=== PATIENT | female | born 2000 | race Caucasian/White ===

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

== ENCOUNTER 2022-04-15 07:51 | Day surgery (SDC) | payer BC, SELFPAY ==
[2022-04-15 08:19] VITALS: BP 112/63; PULSE 99; RESP 18; TEMP 36.9; O2SAT 100; BMI 32.2
[2022-04-15] MEDS: Lactated Ringers 1,000 ML 15 ML IV (08:19)
[2022-04-15 08:21] LABS: Internal QC Validated? YES +Cl - CLEAR BKGD; Pregnancy, Urine Negative Negative
--- NOTE | 2022-04-15 08:32 | PCM.HP.BLA ---
History and Physical Date of Admission: 04/15/22 Chief complaint: Nexplanon removal History present illness: 21-year-old arrives for Nexplanon removal. No medical changes since last seen. All questions answered and consent signed. Obstetric history: G0 Past medical history: None Medications: None Past surgical history: None Allergies: No known drug allergies Social history: Denies smoking, alcohol use, drug use Family history: Denies a history of DVT or PE Review of systems: Besides above pertinent positives a full review of systems was performed and found to be negative Physical exam: Vitals: Blood pressure 112/63 pulse 99 respiratory rate 18 temperature 98.5 ?F SPO2 100% on room air General: Normal-appearing no acute distress HEENT: Normocephalic/atraumatic no cervical lymphadenopathy Cardiac/respiratory: No use accessory muscles, nonlabored breathing Abdomen: Soft, nontender, nondistended Extremities: No peripheral edema normal peripheral pulses Psych: Normal affect normal demeanor nonpressured speech Labs: Urine test negative Assessment plan: 21-year-old for Nexplanon removal. Patient understands risk of the procedure include but are not limited to visceral or vascular injury, prolonged hospitalization, blood loss and need for transfusion, reoperation. Patient state understanding wish to proceed. All questions were answered and consent was signed.
[2022-04-15] MEDS: Lidocaine 1% (30 ml sdv) 30 ML Vial (09:14)
[2022-04-15 09:23] VITALS: BP 107/66; BP 112/63; PULSE 88; RESP 16; TEMP 36.3; O2SAT 100
--- NOTE | 2022-04-15 09:26 | DCINST_ITS ---
Discharge Instructions Diet Discharge Diet: No restrictions Activity Discharge Activity: Return to Normal Activity and May Shower May resume sexual activity in: No Restrictions Lifting Restrictions: No lifting over 25 pounds for 1 to 2 weeks Dressing / Incision Call your doctor if your incision/area has: Continuous Slow Oozing and Foul Smelling Discharge Call your doctor if you observe: Fever of 101 or Higher, Shortness of breath and Chest pain Follow Up Care Please Follow Up With: Jules Hopkins MD When: 2 weeks postoperatively Test Results: Test results from this visit will be discussed in further detail at your follow- up appointment, if applicable. Discharge Plan Admission Attending Provider: Jules Hopkins Primary Care Provider: Babatunde Henry Discharge Orders/Prescriptions Prescriptions: No Action etonogestrel 68 MG implant 68 mg SQ DAILY Referrals / Follow Up: Babatunde Henry MD [Primary Care Provider] - Disposition Disposition (needs filled in before D/C Order can be placed): Home, Self Care
--- NOTE | 2022-04-15 09:27 | OP.PCM_ITS ---
Report of Operation Date of Procedure: 04/15/22 Pre-Operative Diagnosis: Nexplanon Malplacement Post-Operative Diagnosis: Nexplanon malplacement Surgery/Procedure Performed:: Nexplanon removal Description of Surgical Findings:: Surgeon: Jules Hopkins MD Anesthesia: General EBL: 5 cc Urine output: Not measured IV fluids: 500 cc Complications: None Specimen: None Findings: Nexplanon left bicipital tricipital groove. Palpable with deep palp ation. Using deep palpation to manipulate Nexplanon, Nexplanon easily removed. Consent: Patient with Nexplanon that is malplaced and patient could not tolerate removal in the office. Patient elects for Nexplanon removal. Patient understands risks of the procedure include but are not limited to visceral or vascular injury, prolonged hospitalization, blood loss need for transfusion, reoperation. Patient state understanding wish to proceed. All questions were answered and consent was signed. Procedure: Patient was brought back to the OR where general anesthesia was found to be adequate. Left upper extremity was prepared with ChloraPrep. As noted above Nexplanon palpable with deep palpation. Medial portion of Nexplanon palpated deep creating the lateral portion of the Nexplanon to elevate. Using a 15 blade a 3 mm incision was made. Nexplanon was palpated and manipulated externally, manipulated towards incision site, visualized tip of Nexplanon, tip of Nexplanon grasped with hemostat and removed. Good hemostasis was noted. 4-0 Monocryl suture used to reapproximate incision. 3 cc of 1% lidocaine injected at operative site. Steri-Strips placed over incision and OpSite placed over incision. Good hemostasis was noted. All counts were correct x2. Patient tolerated the procedure well and was brought to recovery in stable condition.
[2022-04-15 09:30] VITALS: BP 112/63; BP 95/60; PULSE 94; RESP 16; O2SAT 92
[2022-04-15 09:45] VITALS: BP 112/63; BP 90/69; PULSE 92; RESP 16; TEMP 36.8; O2SAT 97
[2022-04-15 10:25] VITALS: BP 103/73; BP 112/63; PULSE 88; RESP 16; TEMP 36.7; O2SAT 99
== END 2022-04-15 10:30 | disposition home or self-care (01) ==
LOC: SDC 07:54 → AC 07:55
PROVIDERS: Anesthesiology; PCP Family Medicine; Referring Provider Obstetrics & Gynecology; Visit Provider Obstetrics & Gynecology
PROC: (CPT 11982; principal; 2022-04-15 09:15)
DX: Z30.46 Encounter for surveillance of implantable subdermal contraceptive (principal)
CPT/HCPCS: 11982; 00400; 81025; J7120; J2405

== ENCOUNTER 2022-09-25 13:15 | Emergency (ER) | payer BC, SELFPAY ==
[2022-09-25 13:16] VITALS: BP 116/91; PULSE 96; RESP 18; TEMP 36.6; O2SAT 99
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
[2022-09-25] MEDS: cycloBENZAPRine HCl 10 MG Tablet PO (16:03)
[2022-09-25] MEDS: Naproxen 500 MG Tablet PO (16:04)
[2022-09-25] MEDS: Lidocaine 5% Patch 1 PATCH TOPICAL (16:08)
--- NOTE | 2022-09-25 16:19 | RAD_ITS ---
INDICATION: pain EXAMINATION/TECHNIQUE: X-RAY - XR Spine Cervical 2 or 3 Views: 3 view cervical spine with odontoid view. COMPARISON: None. FINDINGS: VERTEBRAE: Preserved vertebral body height. No fracture or acute compression deformity. No spondylolisthesis. Straightening of the normal cervical lordosis. Palate roof hardware noted. DISCS: Disc spaces are maintained. NECK SOFT TISSUES: No prevertebral soft tissue widening. LUNG APICES: Clear. RAD/Cerv Spine 2 or 3 Views IMPRESSION: Straightening of normal cervical lordosis which can be positional or secondary to muscle spasm. No evidence of acute fracture or spondylolisthesis. Electronically Signed: Topher Muro MD at 16:39 EDT ,
== END 2022-09-25 16:38 | disposition home or self-care (01) ==
PROVIDERS: Emergency Provider Emergency Medicine; Visit Provider Emergency Medicine
DX: M62.838 Other muscle spasm (principal); Z79.3 Long term (current) use of hormonal contraceptives
CPT/HCPCS: 72040; 99285

== ENCOUNTER 2024-11-17 07:18 | Emergency (ER) | payer BC, SELFPAY ==
[2024-11-17 07:18] VITALS: BP 118/74; PULSE 105; RESP 14; TEMP 36.1; O2SAT 98; BMI 31.5
--- NOTE | 2024-11-17 07:27 | ED.VIS.CHEST ---
HPI History of Present Illness Chief Complaint: Chest Pain Informant: patient Onset/Context/Timing Onset: Today Activity at onset: sudden Timing: Continuous Quality: Positive for Sharp Location: Left Parasternal and Left Chest Worsened By: - (Crying) Relieved By: Nothing Associated Symptoms: Negative for Nausea, Vomiting, Diaphoresis, Dyspnea, Cough, Fever, Lightheadedness, Acid Reflux or Palpitations Narrative Narrative: Patient presents with chest pain that began approximately 1 hour prior to arrival. Patient states it began when she woke up this morning. Patient describes it as sharp. Patient states it is over the left side of her chest. Patient states it is worse when she is crying. Patient states nothing makes it better. Patient denies any nausea or vomiting. Patient denies any diaphoresis. Patient denies any shortness of breath or cough. Patient denies any palpitations. CVD Risk Factors: Positive for Smoking; Negative for Hypertension, Diabetes, Hypercholesterolemia or Family History 1' </=55 PE Risk Factors: Negative for Recent Travel/Surgery, Recent Immobilization, Prior DVT or PE, Cancer or OCP + Smoking + >/=35 PFSH PFSH Medical History Physical exam, pre-employment Anxiety Rash Injury of head and neck Former smoker Shortness of breath on exertion Home Medications ?Medication ?Instructions ?Recorded ?Last Taken ?Type NK 11/17/24 Unknown History Allergy/AdvReac Type Severity Reaction Status Date / Time No Known Allergies Allergy Verified 11/17/24 07:19 Social History Smoking Status: Current every day smoker tobacco type: e-cigarettes ROS ROS ED Constitutional Constitutional ED: Denies chills or fever(s) Eyes Eyes: Denies blurry vision or change in vision ENT ENT ED: Denies rhinorrhea or sore throat Cardiovascular Cardiovascular: Reports as per HPI and chest pain; Denies palpitations Respiratory/Chest Respiratory/Chest: Denies cough or dyspnea Gastrointestinal Gastrointestinal: Denies nausea or vomiting Genitourinary Genitourinary ED: Denies dysuria or hematuria Musculoskeletal Musculoskeletal: Denies back pain or neck pain Integumentary Denies abscess or rash Neurologic Neurologic: Denies headache(s) or weakness Allergic/Immunologic Allergic/Immunologic ED: Denies mouth swelling or urticaria EXAM Physical Exam Const Vital Signs: 11/17/24 07:18 11/17/24 07:27 11/17/24 07:47 Temperature 97 F L Temperature Source Temporal Pulse Rate 105 H Respiratory Rate 14 Respiratory Effort Normal Non-Labored Short of Breath Blood Pressure 118/74 Blood Pressure Mean 88 Pulse Ox 98 99 Oxygen Delivery Method Room Air Room Air Positive well nourished and well developed Constitutional Narrative: BMI is 31.6. General Appearance ED: well developed and NAD HEENT Reports moist mucous membranes Neck supple and no JVD Chest Wall Chest Narrative: There is tenderness over the left anterior chest wall. There is no edema or ecchymosis. There is no subcutaneous emphysema noted. There is no bony crepitance or step-off. Resp normal respiratory effort and clear to auscultation bilaterally Cardio regular rate and regular rhythm GI soft to palpation, non-tender and non-distended Neuro oriented x3, CN's II-XII intact bilaterally and no sensory deficits noted Sensorium / Orientation: awake and alert Motor Exam: strength 5/5 throughout Psych mental status grossly normal Heart Score History: Slightly/Non-Suspicious ECG: Normal Age: </= 45 years Risk Factors: 1 or 2 Risk Factors Score: 1 MDM MDM MDM Narrative Medical decision making narrative: Differential diagnosis includes cardiac dysrhythmia, cardiac ischemia, bronchitis, musculoskeletal pain, pneumothorax, and anxiety. EKG will be obtained to assess for cardiac dysrhythmia cardiac ischemia. Chest x-ray will be obtained to assess for bronchitis and pneumothorax. CBC will be obtained to assess for leukocytosis or anemia. Basic metabolic profile will be obtained to assess for electrolyte abnormality and renal function. High-sensitivity troponin will be obtained to assess for cardiac ischemia. Serum hCG will be obtained to assess for . History & Record Review Additional record(s) reviewed:: Prior outpatient record, Prior ED visit and Prior labs Lab Data Attestation: I reviewed the patient's lab results. Lab results narrative: CBC was reviewed and was within normal limits. Basic metabolic profile was reviewed and was within normal notes. Serum hCG was reviewed and was negative. High-sensitivity troponin was reviewed and was less than 6. Labs: Laboratory Results - last 24 hr 11/17/24 07:40 WBC 6.7 RBC 4.81 Hgb 14.3 Hct 42.3 MCV 87.9 MCH 29.7 MCHC 33.8 RDW Std Deviation 42.1 RDW Coeff of Michael 12.9 Plt Count 259 MPV 9.7 Immature Gran % (Auto) 0.400 Neut % (Auto) 54.5 Lymph % (Auto) 35.9 [place] % (Auto) 7.3 Eos % (Auto) 1.5 Baso % (Auto) 0.4 Absolute Neuts (auto) 3.7 Absolute Lymphs (auto) 2.41 Nucleated RBC % 0 Sodium 138 Potassium 4.1 Chloride 104 Carbon Dioxide 21.3 Anion Gap 12 BUN 13 Creatinine 0.61 L Estim Creat Clear Calc 151.14 Est GFR (MDRD) Non-Af 129 BUN/Creatinine Ratio 21.9 H Glucose 115 H Calcium 9.1 Troponin T High Sens < 6 Serum , Qual NEGATIVE Radiography Chest X-Ray - ED: 2 View, Read by ED Physician, Read by Radiologist and No Acute Disease Diagnostic Testing: Clinical Impression(s) from Imaging Studies Chest X-Ray 11/17/24 07:40 IMPRESSION: No acute cardiopulmonary abnormality. Reading Location: [facility] and lateral chest x-ray was obtained. There are 2 views. On my independent interpretation, lung sagastume are clear. There is normal cardiac silhouette. Bony thorax is normal. There is no acute process noted. Radiologist also interpreted the x-ray and agrees. EKG Initial EKG: Attestation: I personally reviewed and interpreted this EKG as follows: Interpretation: Sinus Rhythm (98) and No Acute Injury Pattern Comments: EKG was obtained. On my independent interpretation, it showed a normal sinus rhythm with a rate of 98. [place] interval, QRS interval, and QTc intervals were all normal. [place] was normal. There are no acute ST or T wave changes. Prior EKG tracings: not available for review Prior: No Prior Treatment and Re-Evaluation :: Patient was given aspirin. Patient had minimal improvement of her pain with this. Patient was given injection of Toradol. Patient was advised of her findings. Patient has a HEART score of 1. Patient was advised that this is low risk for acute cardiac event. Patient was instructed to follow-up with her primary care physician in 5 to 7 days. Patient was instructed to return if worse in any way. Patient and family understood and were agreeable with the plan. All questions were answered. Discharge Plan Triage Chief Complaint: Chest Pain ED Provider: Singh Parish Dx/Rx/DC Orders Clinical Impression: Chest pain, Nicotine vapor product user Instructions: ED Chest Pain, Uncertain Cause Prescriptions: No Action NK Stand Alone Forms: Work / School Excuse Primary Care Provider: Care Physician,No Primary Referrals: Juanjo Sinclair MD [Med Staff - On Site Wastewater Systems Technician] - 5-7 Days Care Physician,No Primary [Primary Care Provider] - Print Language: Maltese Disposition Disposition: Home, Self Care
--- NOTE | 2024-11-17 07:36 | EKG12_ITS ---
Test Reason : CHEST PAIN Blood Pressure : */* mmHG Vent. Rate : 98 BPM Atrial Rate : 98 BPM P-R Int : 124 ms QRS Dur : 76 ms QT Int : 344 ms P-R-T Axes : 26 48 14 degrees QTcB Int : 439 ms Normal sinus rhythm Normal ECG No previous ECGs available Confirmed by Mansoor Macedo ([id number]), dictionary editor MEI MIN ([id number]) on 11/23/2024 6:11:14 AM Referred By: Confirmed By: Mansoor Macedo
--- NOTE | 2024-11-17 07:39 | ED.RN ---
NO OLD EKGS
--- NOTE | 2024-11-17 07:40 | RAD_ITS ---
PROCEDURE: CHEST PA AND LATERAL 11/17/2024 REASON FOR EXAM: CHEST PAIN TECHNIQUE: Procedure Code: RADCXR Modality: DX Procedure: CHEST PA AND LATERAL COMPARISON: October 24, 2019 FINDINGS: Hardware: EKG leads Heart: Normal Mediastinum: Normal Lungs: Clear Bones: The bones are unremarkable. RAD/Chest PA and Lateral IMPRESSION: No acute cardiopulmonary abnormality. Reading Location: [id number]
[2024-11-17 07:47] VITALS: O2SAT 99
[2024-11-17 07:57] LABS: Hematocrit 42.3 % (37-47); Hemoglobin 14.3 g/dL (12.0-15.0); Immature Granulocytes Count 0.030 X10^3/uL (0.0-0.0); Mean Corp Hgb Conc 33.8 g/dL (32-36); Mean Corpuscular Volume 87.9 fL (81-99); Mean Platelet Vol. 9.7 fl (6.2-12.0); NRBC Flagged by Analyzer 0 % (0-5); Platelet Count 259 K/mm3 (150-450); RBC Distribution Width CV 12.9 % (11.6-14.6); RBC Distribution Width SD 42.1 fl (35.1-43.9); Red Blood Count 4.81 M/mm3 (4.2-5.4); White Blood Count 6.7 K/mm3 (4.4-11.0)
[2024-11-17 08:25] LABS: Internal QC Validated? YES +Cl - CLEAR BKGD; Pregnancy, Serum, hCG Quali. NEGATIVE Negative; Record Kit Lot#, Serum Preg. 0000962302
[2024-11-17 08:27] LABS: Anion Gap 12 (5-15); BUN 13 mg/dL (4-19); BUN/Creat Ratio 21.9 RATIO (10-20); Calcium,Total 9.1 mg/dL (7.6-11.0); Carbon Dioxide 21.3 mmol/L (21.0-32.0); Chloride 104 mmol/L (98-108); Estimated Creatinine Clearance 151.14 ml/min (50-250); Glucose 115 mg/dL (70-99); Potassium 4.1 mmol/L (3.3-5.1); Troponin T High Sensitivity < 6 ng/L (<=14)
[2024-11-17 09:06] VITALS: BP 88/69; PULSE 81; RESP 19; TEMP 36.6; O2SAT 99
[2024-11-17] MEDS: Ketorolac 30 MG/ML Syringe IV (09:07)
== END 2024-11-17 09:16 | disposition home or self-care (01) ==
PROVIDERS: Emergency Provider Emergency Medicine; Visit Provider Emergency Medicine
DX: R07.9 Chest pain, unspecified (principal); F17.291 Nicotine dependence, other tobacco product, in remission
CPT/HCPCS: 71046; 80048; 84484; 84703; 85025; 93005; 96374; 99284; A4216